=== PATIENT | female | born 1945 | race African-American/Black ===

== ENCOUNTER 2018-10-20 11:06 | Inpatient (IN) | payer MEDICARE, MEDICAID ==
[~2018-10-20] VITALS: Ht 157.5 cm; Wt 93.4 kg
[2018-10-20 10:00] VITALS: BP 218/76
[~2018-10-20 11:06] MED LIST: AMLO10TA80 PO; ATOR-2 PO; DOXY100C42 PO; LEVEMIR SQ; OLME40TA11 PO
[2018-10-20] MEDS ORDERED: DEXTROSE 50% WATER 50ML SYRINGE IV PRN (11:45)
[2018-10-20 12:00] VITALS: BP 181/72
[2018-10-20] MEDS: BLOOD SUGAR DIAGNOSTIC STRIP TEST SCH ×3 (12:20→20:20)
[2018-10-20 13:33] VITALS: BP 217/86
[2018-10-20] MEDS: AMLODIPINE 10MG TABLET PO SCH (14:13)
[2018-10-20] MEDS: INSULIN LISPRO 100 UNITS/ML SUBCUT SCH ×3 (14:22→20:26)
[2018-10-20] MEDS: ISOSORB DINIT/HYDRALAZINE HCL 20/37.5MG TABLET PO SCH ×2 (15:42→17:54)
[2018-10-20] MEDS: DEXT 5%/0.45% NACL KCL 20MEQ/L 1,000 ML IV SCH (15:43)
[2018-10-20 16:33] VITALS: BP 160/108
[2018-10-20] MEDS ORDERED: CLOP75TA4 PO (16:39)
[2018-10-20] MEDS ORDERED: METO1TAB26 MT (16:39)
[2018-10-20] MEDS ORDERED: LEVVL SQ (16:39)
[2018-10-20] MEDS ORDERED: NITR0.4T49 SL (16:39)
[2018-10-20] MEDS ORDERED: [UNRECOGNIZED DRUG - CODE] IV (16:39)
[2018-10-20] MEDS ORDERED: INSU100C6 SQ (16:39)
[2018-10-20] MEDS ORDERED: SPIR1TAB4 PO (16:39)
[2018-10-20] MEDS ORDERED: ATOR80TA MT (16:39)
[2018-10-20 20:00] VITALS: BP 149/75
[2018-10-20] MEDS: INSULIN GLARGINE UD 100 UNITS/ML SYR SUBCUT SCH (20:10)
[2018-10-21] VITALS: BP 140/70
[2018-10-21 04:00] VITALS: BP 173/76
[2018-10-21 06:44] LABS: HEMATOCRIT 32.3 % (36.0-48.0); HEMOGLOBIN 10.9 g/dL (12.0-16.0); MEAN CORPUSCULAR HEMOGLOBIN 30.4 pg (28.0-32.0); MEAN CORPUSCULAR VOLUME 90.4 fL (81.0-99.0); PLATELET 238 x1000/uL (130-400); RED BLOOD CELL COUNT 3.57 mill/uL (4.2-5.4); RED CELL DISTRIBUTION WIDTH 14.5 % (11.6-14.6)
[2018-10-21] MEDS: BLOOD SUGAR DIAGNOSTIC STRIP TEST SCH ×4 (07:26→20:13)
[2018-10-21 07:39] LABS: HEPATITIS B SURFACE ANTIGEN NEGATIVE
[2018-10-21] MEDS: INSULIN LISPRO 100 UNITS/ML SUBCUT SCH ×4 (07:50→20:19)
[2018-10-21 08:00] VITALS: BP_SYST 161; BP_SYST 182; BP_DIAS 64; BP_DIAS 71
[2018-10-21 08:09] LABS: HEPATITIS A AB IGM NEGATIVE (NEGATIVE)
[2018-10-21 09:13] LABS: CHLORIDE 109 mEq/L (98-107)
[2018-10-21 09:22] LABS: PHOSPHORUS 2.5 mg/dL (2.5-4.9)
[2018-10-21 09:23] LABS: LDL CHOLESTEROL 169 mg/dL (5-100); TOTAL IRON BINDING CAPACITY 224 ug/dL (250-450)
[2018-10-21 09:27] LABS: HDL CHOLESTEROL 40 mg/dL (40-59)
[2018-10-21 11:01] LABS: CLARITY URINE CLEAR (CLEAR); COLOR URINE YELLOW (YELLOW); KETONES URINE NEGATIVE (NEGATIVE); LEUKOCYTE ESTERASE URINE NEGATIVE (NEGATIVE); NITRITE URINE NEGATIVE (NEGATIVE); OCCULT BLOOD URINE NEGATIVE (NEGATIVE); PH URINE 5.5 (4.5-8.0); PROTEIN URINE TRACE (NEGATIVE); SPECIFIC GRAVITY URINE 1.011 (1.005-1.030); UROBILINOGEN URINE 0.2 E.U./dL (0.2-1.0)
[2018-10-21] MEDS: ATORVASTATIN CALCIUM 40MG TABLET PO SCH (11:16)
[2018-10-21] MEDS: AMLODIPINE 10MG TABLET PO SCH (11:16)
[2018-10-21] MEDS: CLOPIDOGREL 75MG TABLET PO SCH (11:17)
[2018-10-21] MEDS: METOPROLOL TARTRATE 50MG TABLET PO SCH ×2 (11:17→20:07)
[2018-10-21] MEDS: LOSARTAN POTASSIUM 100 MG TABLET PO SCH (11:17)
[2018-10-21] MEDS: SPIRONOLACTONE 25MG TABLET PO SCH (11:18)
[2018-10-21] MEDS: INSULIN GLARGINE UD 100 UNITS/ML SYR SUBCUT SCH ×2 (11:37→22:01)
[2018-10-21 12:00] VITALS: BP 153/79
[2018-10-21] MEDS: ISOSORB DINIT/HYDRALAZINE HCL 20/37.5MG TABLET PO SCH ×2 (12:12→18:01)
[2018-10-21 16:00] VITALS: BP 136/60
[2018-10-21] MEDS: ACETAMINOPHEN 325MG TABLET PO PRN (16:04)
[2018-10-21] MEDS ORDERED: NON FORMULARY PATIENT HOME MED XX SCH ×2 (17:30)
[2018-10-21] MEDS ORDERED: NITROGLYCERIN 0.4MG TABLET SL SL PRN (18:45)
[2018-10-22] MEDS: BLOOD SUGAR DIAGNOSTIC STRIP TEST SCH ×4 (07:20→21:29)
[2018-10-22] MEDS: INSULIN LISPRO 100 UNITS/ML SUBCUT SCH ×4 (07:50→21:48)
[2018-10-22 08:00] VITALS: BP 178/63
[2018-10-22] MEDS: DEXT 5%/0.45% NACL KCL 20MEQ/L 1,000 ML IV SCH (09:53)
[2018-10-22] MEDS: AMLODIPINE 10MG TABLET PO SCH (09:53)
[2018-10-22] MEDS: CLOPIDOGREL 75MG TABLET PO SCH (09:54)
[2018-10-22] MEDS: ATORVASTATIN CALCIUM 40MG TABLET PO SCH (09:54)
[2018-10-22] MEDS: LOSARTAN POTASSIUM 100 MG TABLET PO SCH (09:54)
[2018-10-22] MEDS: ISOSORB DINIT/HYDRALAZINE HCL 20/37.5MG TABLET PO SCH ×3 (09:54→18:38)
[2018-10-22] MEDS: SPIRONOLACTONE 25MG TABLET PO SCH (09:55)
[2018-10-22] MEDS: METOPROLOL TARTRATE 50MG TABLET PO SCH ×2 (09:55→21:18)
[2018-10-22] MEDS: INSULIN GLARGINE UD 100 UNITS/ML SYR SUBCUT SCH ×2 (10:03→21:49)
[2018-10-22] MEDS ORDERED: IOHEXOL-350 100 ML BOTTLE ONE (11:44)
[2018-10-22] MEDS: ACETAMINOPHEN 325MG TABLET PO PRN (12:34)
[2018-10-22 14:12] LABS: *AMPHETAMINES SCREEN URINE NEGATIVE (NEGATIVE); *BARBITURATES SCREEN URINE NEGATIVE (NEGATIVE); *BENZODIAZEPINES SCREEN URINE NEGATIVE (NEGATIVE); *COCAINE SCREEN URINE NEGATIVE (NEGATIVE); METHADONE URINE SCREEN NEGATIVE (NEGATIVE)
[2018-10-22 14:13] LABS: CANNABINOID URINE SCREEN NEGATIVE (NEGATIVE); OPIATES URINE SCREEN NEGATIVE (NEGATIVE); PHENCYCLIDINE URINE SCREEN NEGATIVE (NEGATIVE)
[2018-10-22 14:57] LABS: ETHANOL BLOOD < 10 mg/dL
[2018-10-22 15:00] LABS: LDL CHOLESTEROL 136 mg/dL (5-100)
[2018-10-22 15:01] LABS: HDL CHOLESTEROL 35 mg/dL (40-59)
[2018-10-22 15:02] LABS: T4 FREE 1.11 ng/dL (0.76-1.46)
[2018-10-22 15:15] LABS: VITAMIN B12 SERUM 1089 pg/mL (211-911)
[2018-10-22 15:19] LABS: FOLIC ACID (FOLATE) SERUM > 20.00 ng/mL (>5.38)
[2018-10-22 16:00] VITALS: BP 125/49
[2018-10-22 20:00] VITALS: BP 140/64
[2018-10-23] VITALS: BP 159/66
[2018-10-23] MEDS: DEXT 5%/0.45% NACL KCL 20MEQ/L 1,000 ML IV SCH (02:13)
[2018-10-23 04:00] VITALS: BP 167/63
[2018-10-23] MEDS: BLOOD SUGAR DIAGNOSTIC STRIP TEST SCH ×3 (06:34→18:02)
[2018-10-23] MEDS: INSULIN LISPRO 100 UNITS/ML SUBCUT SCH ×3 (06:35→18:02)
[2018-10-23 08:00] VITALS: BP 146/64
[2018-10-23 08:37] LABS: BASOPHILS % 0.7 % (0.0-2.0); EOSINOPHILS % 0.6 % (0.0-5.0); HEMATOCRIT. 33.1 % (36.0-48.0); LYMPHOCYTES % 19.9 % (20.0-50.0); MEAN CORPUSCULAR VOLUME 90.6 fL (81.0-99.0); MEAN PLATELET VOLUME 9.2 fl (7.4-10.4); MONOCYTES % 8.3 % (2.0-8.0); NEUTROPHILS % 70.5 % (40.0-76.0); PLATELET 248 x1000/uL (130-400); RED BLOOD CELL COUNT 3.65 mill/uL (4.2-5.4); RED CELL DISTRIBUTION WIDTH 14.6 % (11.6-14.6)
[2018-10-23 08:39] LABS: CHLORIDE 111 mEq/L (98-107)
[2018-10-23 08:47] LABS: PHOSPHORUS 3.7 mg/dL (2.5-4.9)
[2018-10-23] MEDS: ATORVASTATIN CALCIUM 40MG TABLET PO SCH (09:10)
[2018-10-23] MEDS: SPIRONOLACTONE 25MG TABLET PO SCH (09:10)
[2018-10-23] MEDS: LOSARTAN POTASSIUM 100 MG TABLET PO SCH (09:11)
[2018-10-23] MEDS: METOPROLOL TARTRATE 50MG TABLET PO SCH (09:11)
[2018-10-23] MEDS: CLOPIDOGREL 75MG TABLET PO SCH (09:11)
[2018-10-23] MEDS: ISOSORB DINIT/HYDRALAZINE HCL 20/37.5MG TABLET PO SCH ×3 (09:11→17:28)
[2018-10-23] MEDS: AMLODIPINE 10MG TABLET PO SCH (09:11)
[2018-10-23] MEDS: INSULIN GLARGINE UD 100 UNITS/ML SYR SUBCUT SCH (11:03)
[2018-10-23 12:00] VITALS: BP 144/67
[2018-10-23 16:00] VITALS: BP 134/59
[2018-10-23 17:41] VITALS: BP 134/59
== END 2018-10-23 18:23 | DRG 65 ==
LOC: 6EST 11:06
PROVIDERS: ADMIT Internal Medicine; ATTEND Internal Medicine
PROC: 05H533Z Insertion of Infusion Device into Right Subclavian Vein, Percutaneous Approach (ICD-10-PCS; principal; 2018-10-21)
PROC: B546ZZA Ultrasonography of Right Subclavian Vein, Guidance (ICD-10-PCS; 2018-10-21)
PROC: B5161ZA Fluoroscopy of Right Subclavian Vein using Low Osmolar Contrast, Guidance (ICD-10-PCS; 2018-10-21)
DX: I63.532 Cerebral infarction due to unspecified occlusion or stenosis of left posterior cerebral artery (principal); G81.91 Hemiplegia, unspecified affecting right dominant side; R41.4 Neurologic neglect syndrome; D50.9 Iron deficiency anemia, unspecified; E11.9 Type 2 diabetes mellitus without complications; E78.00 Pure hypercholesterolemia, unspecified; E78.5 Hyperlipidemia, unspecified; R47.02 Dysphasia; H54.7 Unspecified visual loss; R33.9 Retention of urine, unspecified; R47.01 Aphasia; H53.461 Homonymous bilateral field defects, right side; I11.9 Hypertensive heart disease without heart failure; I65.23 Occlusion and stenosis of bilateral carotid arteries; M19.90 Unspecified osteoarthritis, unspecified site; Z91.14 Patient's other noncompliance with medication regimen; Z88.6 Allergy status to analgesic agent; Z91.19 Patient's noncompliance with other medical treatment and regimen; Z88.0 Allergy status to penicillin; Z88.5 Allergy status to narcotic agent; Z88.2 Allergy status to sulfonamides; Z79.84 Long term (current) use of oral hypoglycemic drugs
CPT/HCPCS: 36415; 36573; 70496; 70498; 70544; 70553; 71045; 80061; 80069; 80076; 80305; 80320; 82248; 82607; 82746; 82962; 83036; 83540; 83550; 83735; 84100; 84436; 84439; 84443; 84480; 84481; 84550; 85027; 85651; 86705; 86709; 86803; 87340; 92610; 93005; 93306; 93880; 97110; 97112; 97162; 97167; 97530; C1725; J1815; J7040; Q9967; A4315; G0480

== ENCOUNTER 2018-11-03 18:40 | Inpatient (IN) | payer MEDICARE, MEDICAID ==
[~2018-11-03] VITALS: Ht 165.1 cm; Wt 96.2 kg
[~2018-11-03 18:40] MED LIST changes: +ATOR80TA MT; +CLOP75TA4 PO; +INSU100C6 SQ; +LEVVL SQ; +METO1TAB26 MT; +NITR0.4T49 SL; +SPIR1TAB4 PO; +[UNRECOGNIZED DRUG - CODE] IV
[2018-11-03 19:30] VITALS: BP 175/67
[2018-11-03 20:00] VITALS: BP 155/70
[2018-11-03 21:00] VITALS: BP 129/92
[2018-11-03] MEDS ORDERED: DEXTROSE 50% WATER 50ML SYRINGE IV PRN (21:45)
[2018-11-03 22:00] VITALS: BP 170/82
[2018-11-03] MEDS: DEXT 5%/0.45% NACL 1000ML 1,000 ML IV SCH (23:35)
[2018-11-03] MEDS: BLOOD SUGAR DIAGNOSTIC STRIP TEST SCH (23:43)
[2018-11-03] MEDS: DILTIAZEM HCL 5MG/ML 5ML VIAL IV PRN (23:44)
[2018-11-04] VITALS (12 sets, daily range): BP systolic 103–193; BP diastolic 41–140
[2018-11-04] MEDS: INSULIN LISPRO 100 UNITS/ML SUBCUT SCH ×4 (00:08→17:03)
[2018-11-04] MEDS: BLOOD SUGAR DIAGNOSTIC STRIP TEST SCH ×3 (06:55→17:02)
[2018-11-04] MEDS: DILTIAZEM HCL 5MG/ML 5ML VIAL IV PRN (18:40)
[2018-11-05] VITALS (12 sets, daily range): BP systolic 122–210; BP diastolic 57–91
[2018-11-05] MEDS: DILTIAZEM HCL 5MG/ML 5ML VIAL IV PRN (00:12)
[2018-11-05] MEDS: BLOOD SUGAR DIAGNOSTIC STRIP TEST SCH ×4 (00:35→17:20)
[2018-11-05] MEDS: DEXT 5%/0.45% NACL 1000ML 1,000 ML IV SCH (00:35)
[2018-11-05] MEDS: INSULIN LISPRO 100 UNITS/ML SUBCUT SCH ×4 (00:41→17:23)
[2018-11-05] MEDS ORDERED: FUROSEMIDE 20MG/2ML VIAL IVP NR (02:53)
[2018-11-05] MEDS: LORAZEPAM 2MG/ML CPJ IV PRN (07:09)
[2018-11-05 10:57] LABS: BASOPHILS % 0.8 % (0.0-2.0); EOSINOPHILS % 1.5 % (0.0-5.0); HEMOGLOBIN. 11.4 g/dL (12.0-16.0); LYMPHOCYTES % 19.6 % (20.0-50.0); MEAN CORPUSCULAR HEMOGLOBIN 30.4 pg (28.0-32.0); MEAN CORPUSCULAR VOLUME 90.7 fL (81.0-99.0); MEAN PLATELET VOLUME 8.3 fl (7.4-10.4); MONOCYTES % 7.9 % (2.0-8.0); NEUTROPHILS % 70.2 % (40.0-76.0); PLATELET 364 x1000/uL (130-400); RED BLOOD CELL COUNT 3.75 mill/uL (4.2-5.4); RED CELL DISTRIBUTION WIDTH 14.4 % (11.6-14.6)
[2018-11-05 11:36] LABS: CHLORIDE 108 mEq/L (98-107)
[2018-11-05 11:48] LABS: PHOSPHORUS 3.1 mg/dL (2.5-4.9)
[2018-11-05] MEDS: DILTIAZEM HCL 5MG/ML 5ML VIAL IV SCH ×2 (12:50→18:20)
[2018-11-05] MEDS ORDERED: KCL 20MEQ/100ML PREMIX 100 ML IV SCH (13:30)
[2018-11-05] MEDS: DEXT 5%/0.45% NACL KCL 20MEQ/L 1,000 ML IV SCH (16:14)
[2018-11-06] VITALS (12 sets, daily range): BP systolic 141–165; BP diastolic 65–83
[2018-11-06] MEDS: INSULIN LISPRO 100 UNITS/ML SUBCUT SCH ×4 (00:06→18:00)
[2018-11-06] MEDS: BLOOD SUGAR DIAGNOSTIC STRIP TEST SCH ×4 (00:07→18:12)
[2018-11-06] MEDS: DILTIAZEM HCL 5MG/ML 5ML VIAL IV SCH ×4 (00:07→20:56)
[2018-11-06] MEDS: LORAZEPAM 2MG/ML CPJ IV PRN (03:01)
[2018-11-06 07:07] LABS: EOSINOPHILS % 2.6 % (0.0-5.0); HEMATOCRIT. 34.1 % (36.0-48.0); HEMOGLOBIN. 11.4 g/dL (12.0-16.0); LYMPHOCYTES % 27.7 % (20.0-50.0); MEAN CORPUSCULAR HEMOGLOBIN 30.3 pg (28.0-32.0); MEAN CORPUSCULAR VOLUME 90.6 fL (81.0-99.0); MEAN PLATELET VOLUME 8.1 fl (7.4-10.4); MONOCYTES % 7.3 % (2.0-8.0); NEUTROPHILS % 61.4 % (40.0-76.0); PLATELET 351 x1000/uL (130-400); RED BLOOD CELL COUNT 3.76 mill/uL (4.2-5.4); RED CELL DISTRIBUTION WIDTH 14.3 % (11.6-14.6)
[2018-11-06 07:26] LABS: CHLORIDE 110 mEq/L (98-107)
[2018-11-06] MEDS: DEXT 5%/0.45% NACL KCL 20MEQ/L 1,000 ML IV SCH (09:30)
[2018-11-06] MEDS ORDERED: FUROSEMIDE 20MG/2ML VIAL IV NR (10:30)
[2018-11-06] MEDS: QUETIAPINE FUMARATE 25MG TABLET PO SCH (13:10)
[2018-11-06 20:02] LABS: INR 1.1; PROTHROMBIN TIME 11.4 sec (9.6-11.0)
[2018-11-07] VITALS (15 sets, daily range): BP systolic 134–159; BP diastolic 60–111
[2018-11-07] MEDS: BLOOD SUGAR DIAGNOSTIC STRIP TEST SCH ×5 (00:28→23:49)
[2018-11-07] MEDS: LORAZEPAM 2MG/ML CPJ IV PRN (02:45)
[2018-11-07] MEDS: DILTIAZEM HCL 5MG/ML 5ML VIAL IV SCH ×4 (02:49→19:29)
[2018-11-07] MEDS: DEXT 5%/0.45% NACL KCL 20MEQ/L 1,000 ML IV SCH ×2 (02:49→19:48)
[2018-11-07] MEDS: INSULIN LISPRO 100 UNITS/ML SUBCUT SCH ×5 (06:48→23:49)
[2018-11-07] MEDS: QUETIAPINE FUMARATE 25MG TABLET PO SCH (09:00)
[2018-11-07] MEDS ORDERED: BACTERIOSTATIC SODIUM CHLORIDE 0.9% 30ML VIAL IJ ONE (09:14)
[2018-11-07] MEDS ORDERED: LEVOFLOXACIN 250MG PREMIX 50 ML IV SCH (10:00)
[2018-11-07] MEDS ORDERED: MIDAZOLAM HCL 5 MG/5 ML VIAL ONE (11:53)
[2018-11-07] MEDS ORDERED: FENTANYL CITRATE/PF 50MCG/ML 2ML VIAL ONE (11:54)
[2018-11-07] MEDS ORDERED: LEVOFLOXACIN 500MG PREMIX 100 ML IV ONE (11:59)
[2018-11-07] MEDS: MVI, ADULT NO.1 10 ML in DEXT 5%/0.45% NACL KCL 20MEQ/L 1,000 ML IV SCH ×2 (12:00)
[2018-11-07] MEDS ORDERED: MIDAZOLAM HCL 5 MG/5 ML VIAL IV ONE (12:02)
[2018-11-08] VITALS (12 sets, daily range): BP systolic 124–176; BP diastolic 52–81
[2018-11-08] MEDS: DILTIAZEM HCL 5MG/ML 5ML VIAL IV SCH ×4 (01:41→21:07)
[2018-11-08] MEDS ORDERED: ONDANSETRON HCL 4MG/2ML INJ IV PRN (05:15)
[2018-11-08] MEDS ORDERED: FUROSEMIDE 20MG/2ML VIAL IVP NR (05:15)
[2018-11-08] MEDS: INSULIN LISPRO 100 UNITS/ML SUBCUT SCH ×3 (05:39→18:07)
[2018-11-08] MEDS: BLOOD SUGAR DIAGNOSTIC STRIP TEST SCH ×3 (05:40→17:16)
[2018-11-08 08:57] LABS: BASOPHILS % 0.3 % (0.0-2.0); HEMATOCRIT. 34.3 % (36.0-48.0); HEMOGLOBIN. 11.5 g/dL (12.0-16.0); LYMPHOCYTES % 7.7 % (20.0-50.0); MEAN CORPUSCULAR HEMOGLOBIN 30.2 pg (28.0-32.0); MEAN CORPUSCULAR VOLUME 90.6 fL (81.0-99.0); MONOCYTES % 5.9 % (2.0-8.0); NEUTROPHILS % 86.1 % (40.0-76.0); PLATELET 317 x1000/uL (130-400); RED BLOOD CELL COUNT 3.79 mill/uL (4.2-5.4); RED CELL DISTRIBUTION WIDTH 14.4 % (11.6-14.6)
[2018-11-08] MEDS: MVI, ADULT NO.1 10 ML in DEXT 5%/0.45% NACL KCL 20MEQ/L 1,000 ML IV SCH ×2 (09:00)
[2018-11-08] MEDS: QUETIAPINE FUMARATE 25MG TABLET PO SCH (09:23)
[2018-11-08] MEDS: DEXT 5%/0.45% NACL KCL 20MEQ/L 1,000 ML IV SCH (11:39)
[2018-11-08 11:45] LABS: CLARITY URINE CLEAR (CLEAR); COLOR URINE YELLOW (YELLOW); KETONES URINE NEGATIVE (NEGATIVE); LEUKOCYTE ESTERASE URINE NEGATIVE (NEGATIVE); NITRITE URINE NEGATIVE (NEGATIVE); OCCULT BLOOD URINE NEGATIVE (NEGATIVE); PROTEIN URINE NEGATIVE (NEGATIVE); SPECIFIC GRAVITY URINE 1.007 (1.005-1.030); UROBILINOGEN URINE 0.2 E.U./dL (0.2-1.0)
[2018-11-08] MEDS ORDERED: FUROSEMIDE 20MG TABLET PO SCH (17:00)
[2018-11-08] MEDS ORDERED: AMLODIPINE 5MG TABLET PO SCH (21:00)
[2018-11-09] VITALS (13 sets, daily range): BP systolic 98–161; BP diastolic 50–85
[2018-11-09] MEDS: INSULIN LISPRO 100 UNITS/ML SUBCUT SCH ×4 (00:34→17:19)
[2018-11-09] MEDS: DILTIAZEM HCL 5MG/ML 5ML VIAL IV SCH (02:42)
[2018-11-09] MEDS: DEXT 5%/0.45% NACL KCL 20MEQ/L 1,000 ML IV SCH (05:11)
[2018-11-09] MEDS: BLOOD SUGAR DIAGNOSTIC STRIP TEST SCH ×4 (06:00→17:19)
[2018-11-09] MEDS ORDERED: MVI, ADULT NO.1 10 ML, POTASSIUM CHLORIDE INJ 20 MEQ in DEXT 5%/0.45% NACL 1000ML 1,000 ML IV SCH ×3 (09:00)
[2018-11-09] MEDS: ISOSORB DINIT/HYDRALAZINE HCL 20/37.5MG TABLET GT SCH ×2 (09:01→17:18)
[2018-11-09] MEDS: MAGNESIUM OXIDE 400MG TABLET GT SCH (09:01)
[2018-11-09] MEDS: CARVEDILOL 12.5MG TABLET GT SCH ×2 (09:01→21:17)
[2018-11-09] MEDS: QUETIAPINE FUMARATE 25MG TABLET PO SCH (09:02)
[2018-11-09] MEDS: AMLODIPINE 5MG TABLET GT SCH ×2 (09:02→21:16)
[2018-11-09] MEDS: POTASSIUM CHLORIDE 20MEQ TABLET SR PO SCH ×2 (09:06→21:16)
[2018-11-09 12:45] LABS: BASOPHILS % 0.3 % (0.0-2.0); EOSINOPHILS % 0.3 % (0.0-5.0); HEMATOCRIT. 29.9 % (36.0-48.0); MEAN CORPUSCULAR HEMOGLOBIN 30.2 pg (28.0-32.0); MEAN CORPUSCULAR VOLUME 90.5 fL (81.0-99.0); MEAN PLATELET VOLUME 8.8 fl (7.4-10.4); MONOCYTES % 8.1 % (2.0-8.0); NEUTROPHILS % 82.3 % (40.0-76.0); PLATELET 258 x1000/uL (130-400); RED CELL DISTRIBUTION WIDTH 14.3 % (11.6-14.6)
[2018-11-09] MEDS: HYDROCHLOROTHIAZIDE 12.5MG CAPSULE GT SCH (15:17)
[2018-11-09] MEDS ORDERED: QUETIAPINE FUMARATE 25MG TABLET PO PRN (16:45)
[2018-11-09] MEDS: METOCLOPRAMIDE HCL 10MG/2ML VIAL IV SCH (17:18)
[2018-11-10] VITALS (8 sets, daily range): BP systolic 116–132; BP diastolic 54–80
[2018-11-10] MEDS: METOCLOPRAMIDE HCL 10MG/2ML VIAL IV SCH ×3 (00:07→12:30)
[2018-11-10] MEDS: BLOOD SUGAR DIAGNOSTIC STRIP TEST SCH ×3 (00:08→12:18)
[2018-11-10] MEDS: INSULIN LISPRO 100 UNITS/ML SUBCUT SCH ×3 (00:09→12:31)
[2018-11-10 05:35] LABS: PHOSPHORUS 2.3 mg/dL (2.5-4.9)
[2018-11-10] MEDS ORDERED: SODIUM CHLORIDE 0.9% INJ 3ML FLUSH IVF SCH (06:00)
[2018-11-10 06:16] LABS: BASOPHILS % 0.4 % (0.0-2.0); EOSINOPHILS % 1.1 % (0.0-5.0); HEMATOCRIT. 29.3 % (36.0-48.0); HEMOGLOBIN. 9.5 g/dL (12.0-16.0); MEAN CORPUSCULAR HEMOGLOBIN 29.5 pg (28.0-32.0); MEAN CORPUSCULAR VOLUME 90.8 fL (81.0-99.0); MEAN PLATELET VOLUME 8.9 fl (7.4-10.4); MONOCYTES % 7.2 % (2.0-8.0); NEUTROPHILS % 81.3 % (40.0-76.0); PLATELET 265 x1000/uL (130-400); RED BLOOD CELL COUNT 3.22 mill/uL (4.2-5.4); RED CELL DISTRIBUTION WIDTH 14.7 % (11.6-14.6)
[2018-11-10] MEDS: HYDROCHLOROTHIAZIDE 12.5MG CAPSULE GT SCH (08:51)
[2018-11-10] MEDS: MAGNESIUM OXIDE 400MG TABLET GT SCH (08:51)
[2018-11-10] MEDS: ISOSORB DINIT/HYDRALAZINE HCL 20/37.5MG TABLET GT SCH (08:52)
[2018-11-10] MEDS: AMLODIPINE 5MG TABLET GT SCH (08:52)
[2018-11-10] MEDS: POTASSIUM CHLORIDE 20MEQ TABLET SR PO SCH (08:52)
[2018-11-10] MEDS: CARVEDILOL 12.5MG TABLET GT SCH (08:52)
[2018-11-10] MEDS ORDERED: MULTIVITAMINS,THER W-MINERALS TABLET GT SCH (09:00)
[2018-11-10] MEDS ORDERED: INSULIN GLARGINE UD 100 UNITS/ML SYR SUBCUT SCH ×2 (10:00)
== END 2018-11-10 13:24 | DRG 872 ==
LOC: 3WST 18:40
PROVIDERS: ADMIT Internal Medicine; ATTEND Internal Medicine
PROC: 0DH63UZ Insertion of Feeding Device into Stomach, Percutaneous Approach (ICD-10-PCS; principal; 2018-11-07)
DX: A41.9 Sepsis, unspecified organism (principal); I69.351 Hemiplegia and hemiparesis following cerebral infarction affecting right dominant side; N39.0 Urinary tract infection, site not specified; R41.4 Neurologic neglect syndrome; E46 Unspecified protein-calorie malnutrition; G93.40 Encephalopathy, unspecified; R47.01 Aphasia; I65.23 Occlusion and stenosis of bilateral carotid arteries; I65.02 Occlusion and stenosis of left vertebral artery; H53.461 Homonymous bilateral field defects, right side; E78.5 Hyperlipidemia, unspecified; E11.65 Type 2 diabetes mellitus with hyperglycemia; D50.9 Iron deficiency anemia, unspecified; E55.9 Vitamin D deficiency, unspecified; E78.00 Pure hypercholesterolemia, unspecified; R47.1 Dysarthria and anarthria; F91.9 Conduct disorder, unspecified; H54.7 Unspecified visual loss; I11.9 Hypertensive heart disease without heart failure; B96.1 Klebsiella pneumoniae [K. pneumoniae] as the cause of diseases classified elsewhere; K29.70 Gastritis, unspecified, without bleeding; M15.9 Polyosteoarthritis, unspecified; R13.12 Dysphagia, oropharyngeal phase; Z82.49 Family history of ischemic heart disease and other diseases of the circulatory system; Z91.19 Patient's noncompliance with other medical treatment and regimen; Z88.0 Allergy status to penicillin; Z88.2 Allergy status to sulfonamides; Z88.6 Allergy status to analgesic agent; Z88.1 Allergy status to other antibiotic agents; Z91.14 Patient's other noncompliance with medication regimen; Z68.37 Body mass index [BMI] 37.0-37.9, adult; I69.391 Dysphagia following cerebral infarction
CPT/HCPCS: 36415; 71045; 74018; 80048; 80076; 81003; 82140; 82248; 82962; 83735; 84100; 84134; 84550; 85651; 92610; 93005; 93970; 97162; 97166; 99152; J1815; J1940; J1956; J2060; J2250; J2405; J2765; J3010; J3480; J3490; G0500

== ENCOUNTER 2019-01-06 23:58 | Inpatient (IN) | payer MEDICARE, MEDICAID ==
[~2019-01-06] VITALS: Ht 167.6 cm; Wt 77.1 kg
[2019-01-07] MEDS ORDERED: LORAZEPAM 2MG/ML CPJ IV ONE (06:30)
[2019-01-07 08:37] LABS: BASOPHILS % 0.6 % (0.0-2.0); EOSINOPHILS % 1.5 % (0.0-5.0); HEMATOCRIT. 33.8 % (36.0-48.0); HEMOGLOBIN. 11.1 g/dL (12.0-16.0); LYMPHOCYTES % 28.3 % (20.0-50.0); MEAN CORPUSCULAR HEMOGLOBIN 29.6 pg (28.0-32.0); MEAN CORPUSCULAR VOLUME 90.5 fL (81.0-99.0); MONOCYTES % 8.6 % (2.0-8.0); PLATELET 278 x1000/uL (130-400); RED BLOOD CELL COUNT 3.73 mill/uL (4.2-5.4); RED CELL DISTRIBUTION WIDTH 14.3 % (11.6-14.6)
[2019-01-07 08:42] LABS: CHLORIDE 103 mEq/L (98-107)
[2019-01-07 08:43] LABS: PROTHROMBIN TIME 10.8 sec (9.6-11.0)
[2019-01-07] MEDS ORDERED: SODIUM CHLORIDE 0.9% 1,000 ML IV ONE (10:00)
[2019-01-07 12:00] VITALS: BP 125/70
[2019-01-07 12:36] VITALS: BP 130/72
[2019-01-07] MEDS ORDERED: HYDROCODONE/ACETAMINOPHEN 5/325MG TABLET PO PRN (13:00)
[2019-01-07] MEDS ORDERED: DEXTROSE 50% WATER 50ML SYRINGE IV PRN (13:00)
[2019-01-07] MEDS ORDERED: ONDANSETRON 4MG ODT PO PRN (13:00)
[2019-01-07] MEDS ORDERED: ACETAMINOPHEN 650MG/20.3ML UDC PO PRN (13:00)
[2019-01-07] MEDS: CARVEDILOL 12.5MG TABLET PO SCH ×2 (15:09→21:21)
[2019-01-07] MEDS: PANTOPRAZOLE SODIUM 40 MG/VIAL IV SCH (15:10)
[2019-01-07] MEDS: AMLODIPINE 5MG TABLET PO SCH ×2 (15:10→21:20)
[2019-01-07] MEDS: ASCORBIC ACID 500 MG TABLET PO SCH ×2 (15:10→21:20)
[2019-01-07] MEDS: MULTIVITAMINS,THER W-MINERALS TABLET PO SCH (15:10)
[2019-01-07] MEDS: DEXT 5%/0.45% NACL 1000ML 1,000 ML IV SCH (15:10)
[2019-01-07 15:47] LABS: TOTAL IRON BINDING CAPACITY 269 ug/dL (250-450)
[2019-01-07 15:48] LABS: HDL CHOLESTEROL 31 mg/dL (40-59); LDL CHOLESTEROL 134 mg/dL (5-100)
[2019-01-07 16:00] VITALS: BP 118/63
[2019-01-07] MEDS: BLOOD SUGAR DIAGNOSTIC STRIP TEST SCH ×2 (17:53→21:19)
[2019-01-07] MEDS: INSULIN LISPRO 100 UNITS/ML SUBCUT SCH ×2 (17:55→21:24)
[2019-01-07 18:02] LABS: CLARITY URINE CLOUDY (CLEAR); COLOR URINE YELLOW (YELLOW); KETONES URINE NEGATIVE (NEGATIVE); LEUKOCYTE ESTERASE URINE 3+ (NEGATIVE); NITRITE URINE NEGATIVE (NEGATIVE); OCCULT BLOOD URINE NEGATIVE (NEGATIVE); PH URINE >=9.0 (4.5-8.0); PROTEIN URINE 2+ (NEGATIVE); SPECIFIC GRAVITY URINE 1.017 (1.005-1.030); UROBILINOGEN URINE 0.2 E.U./dL (0.2-1.0)
[2019-01-07 20:00] VITALS: BP 124/101
[2019-01-07] MEDS: MIRTAZAPINE 15MG TABLET PO SCH (21:21)
[2019-01-07] MEDS: ISOSORB DINIT/HYDRALAZINE HCL 20/37.5MG TABLET PO SCH (21:23)
[2019-01-07] MEDS ORDERED: INSULIN GLARGINE UD 100 UNITS/ML SYR SUBCUT SCH (22:00)
[2019-01-08] VITALS: BP 118/51
[2019-01-08] MEDS: DEXT 5%/0.45% NACL 1000ML 1,000 ML IV SCH ×2 (00:32→14:26)
[2019-01-08 02:40] LABS: CLARITY URINE TURBID (CLEAR); COLOR URINE YELLOW (YELLOW); KETONES URINE NEGATIVE (NEGATIVE); LEUKOCYTE ESTERASE URINE 3+ (NEGATIVE); NITRITE URINE NEGATIVE (NEGATIVE); OCCULT BLOOD URINE NEGATIVE (NEGATIVE); PH URINE >=9.0 (4.5-8.0); PROTEIN URINE 3+ (NEGATIVE); UROBILINOGEN URINE 0.2 E.U./dL (0.2-1.0)
[2019-01-08] MEDS: BLOOD SUGAR DIAGNOSTIC STRIP TEST SCH ×4 (06:22→21:00)
[2019-01-08] MEDS: INSULIN LISPRO 100 UNITS/ML SUBCUT SCH ×3 (06:55→17:51)
[2019-01-08 07:45] LABS: BASOPHILS % 0.9 % (0.0-2.0); EOSINOPHILS % 1.6 % (0.0-5.0); HEMATOCRIT. 32.5 % (36.0-48.0); HEMOGLOBIN. 10.6 g/dL (12.0-16.0); LYMPHOCYTES % 22.9 % (20.0-50.0); MEAN CORPUSCULAR HEMOGLOBIN 29.7 pg (28.0-32.0); MEAN CORPUSCULAR VOLUME 91.1 fL (81.0-99.0); MEAN PLATELET VOLUME 10.8 fl (7.4-10.4); MONOCYTES % 8.7 % (2.0-8.0); NEUTROPHILS % 65.9 % (40.0-76.0); PLATELET 248 x1000/uL (130-400); RED BLOOD CELL COUNT 3.57 mill/uL (4.2-5.4); RED CELL DISTRIBUTION WIDTH 14.5 % (11.6-14.6)
[2019-01-08 08:12] LABS: CHLORIDE 104 mEq/L (98-107)
[2019-01-08] MEDS: ASCORBIC ACID 500 MG TABLET PO SCH ×2 (09:32→20:22)
[2019-01-08] MEDS: ISOSORB DINIT/HYDRALAZINE HCL 20/37.5MG TABLET PO SCH ×2 (09:33→20:28)
[2019-01-08] MEDS: CARVEDILOL 12.5MG TABLET PO SCH ×2 (09:33→20:22)
[2019-01-08] MEDS: AMLODIPINE 5MG TABLET PO SCH ×2 (09:33→20:22)
[2019-01-08] MEDS: MULTIVITAMINS,THER W-MINERALS TABLET PO SCH (09:33)
[2019-01-08] MEDS: INSULIN GLARGINE UD 100 UNITS/ML SYR SUBCUT SCH ×2 (09:47→22:00)
[2019-01-08 12:00] VITALS: BP 128/62
[2019-01-08] MEDS: PANTOPRAZOLE SODIUM 40 MG/VIAL IV SCH (13:19)
[2019-01-08 16:00] VITALS: BP 143/59
[2019-01-08 20:00] VITALS: BP 141/60
[2019-01-08] MEDS: MIRTAZAPINE 15MG TABLET PO SCH (20:22)
[2019-01-09] VITALS: BP 129/54
[2019-01-09 04:00] VITALS: BP 138/60
[2019-01-09] MEDS: INSULIN LISPRO 100 UNITS/ML SUBCUT SCH ×5 (05:51→20:40)
[2019-01-09] MEDS: BLOOD SUGAR DIAGNOSTIC STRIP TEST SCH ×4 (06:39→20:38)
[2019-01-09] MEDS: DEXT 5%/0.45% NACL 1000ML 1,000 ML IV SCH ×2 (06:39→17:07)
[2019-01-09 08:00] VITALS: BP 135/56
[2019-01-09] MEDS: ASCORBIC ACID 500 MG TABLET PO SCH ×2 (09:15→20:24)
[2019-01-09] MEDS: MULTIVITAMINS,THER W-MINERALS TABLET PO SCH (09:15)
[2019-01-09] MEDS: ISOSORB DINIT/HYDRALAZINE HCL 20/37.5MG TABLET PO SCH ×2 (09:16→20:23)
[2019-01-09] MEDS: AMLODIPINE 5MG TABLET PO SCH ×2 (09:16→20:23)
[2019-01-09] MEDS: CARVEDILOL 12.5MG TABLET PO SCH ×2 (09:16→20:23)
[2019-01-09 12:00] VITALS: BP 106/56
[2019-01-09] MEDS: INSULIN GLARGINE UD 100 UNITS/ML SYR SUBCUT SCH ×2 (13:31→21:05)
[2019-01-09 15:59] LABS: BASOPHILS % 0.9 % (0.0-2.0); EOSINOPHILS % 2.4 % (0.0-5.0); HEMATOCRIT. 28.5 % (36.0-48.0); HEMOGLOBIN. 9.1 g/dL (12.0-16.0); LYMPHOCYTES % 27.4 % (20.0-50.0); MEAN CORPUSCULAR HEMOGLOBIN 29.1 pg (28.0-32.0); MEAN CORPUSCULAR VOLUME 90.8 fL (81.0-99.0); MEAN PLATELET VOLUME 10.1 fl (7.4-10.4); MONOCYTES % 8.5 % (2.0-8.0); NEUTROPHILS % 60.8 % (40.0-76.0); PLATELET 209 x1000/uL (130-400); RED BLOOD CELL COUNT 3.13 mill/uL (4.2-5.4); RED CELL DISTRIBUTION WIDTH 14.4 % (11.6-14.6)
[2019-01-09 16:00] VITALS: BP 103/52
[2019-01-09] MEDS ORDERED: POTASSIUM CHLORIDE 20MEQ/PACKET PO NR (17:30)
[2019-01-09 20:00] VITALS: BP 166/60
[2019-01-09] MEDS: MIRTAZAPINE 15MG TABLET PO SCH (20:23)
[2019-01-10] VITALS: BP 112/46
[2019-01-10] MEDS: DEXT 5%/0.45% NACL 1000ML 1,000 ML IV SCH ×2 (03:16→22:44)
[2019-01-10 04:00] VITALS: BP 159/68
[2019-01-10] MEDS: BLOOD SUGAR DIAGNOSTIC STRIP TEST SCH ×4 (07:20→21:45)
[2019-01-10 08:00] VITALS: BP 127/77
[2019-01-10 08:09] LABS: BASOPHILS % 0.7 % (0.0-2.0); EOSINOPHILS % 2.8 % (0.0-5.0); HEMATOCRIT. 30.2 % (36.0-48.0); HEMOGLOBIN. 9.9 g/dL (12.0-16.0); LYMPHOCYTES % 21.4 % (20.0-50.0); MEAN CORPUSCULAR HEMOGLOBIN 29.5 pg (28.0-32.0); MEAN CORPUSCULAR VOLUME 90.3 fL (81.0-99.0); MEAN PLATELET VOLUME 10.4 fl (7.4-10.4); MONOCYTES % 7.5 % (2.0-8.0); NEUTROPHILS % 67.6 % (40.0-76.0); PLATELET 234 x1000/uL (130-400); RED BLOOD CELL COUNT 3.34 mill/uL (4.2-5.4); RED CELL DISTRIBUTION WIDTH 14.2 % (11.6-14.6)
[2019-01-10 08:30] LABS: CHLORIDE 110 mEq/L (98-107)
[2019-01-10] MEDS: MULTIVITAMINS,THER W-MINERALS TABLET PO SCH (10:44)
[2019-01-10] MEDS: ISOSORB DINIT/HYDRALAZINE HCL 20/37.5MG TABLET PO SCH ×2 (10:45→21:21)
[2019-01-10] MEDS: ASCORBIC ACID 500 MG TABLET PO SCH ×2 (10:45→21:20)
[2019-01-10] MEDS: CARVEDILOL 12.5MG TABLET PO SCH ×2 (10:46→21:21)
[2019-01-10] MEDS: AMLODIPINE 5MG TABLET PO SCH ×2 (10:46→21:21)
[2019-01-10] MEDS: INSULIN LISPRO 100 UNITS/ML SUBCUT SCH ×4 (11:01→21:37)
[2019-01-10] MEDS: INSULIN GLARGINE UD 100 UNITS/ML SYR SUBCUT SCH ×2 (11:06→21:46)
[2019-01-10 12:00] VITALS: BP 114/50
[2019-01-10 12:15] LABS: PHOSPHORUS 2.9 mg/dL (2.5-4.9)
[2019-01-10 16:00] VITALS: BP 137/65
[2019-01-10 20:00] VITALS: BP 142/67
[2019-01-10] MEDS: MIRTAZAPINE 15MG TABLET PO SCH (21:20)
[2019-01-11] VITALS: BP 144/58
[2019-01-11 04:00] VITALS: BP 151/71
[2019-01-11] MEDS: BLOOD SUGAR DIAGNOSTIC STRIP TEST SCH ×4 (07:20→21:00)
[2019-01-11] MEDS: INSULIN LISPRO 100 UNITS/ML SUBCUT SCH ×4 (07:50→22:31)
[2019-01-11 08:00] VITALS: BP 157/56
[2019-01-11] MEDS: ISOSORB DINIT/HYDRALAZINE HCL 20/37.5MG TABLET PO SCH ×2 (09:07→22:08)
[2019-01-11] MEDS: ASCORBIC ACID 500 MG TABLET PO SCH ×2 (09:07→22:12)
[2019-01-11] MEDS: MULTIVITAMINS,THER W-MINERALS TABLET PO SCH (09:07)
[2019-01-11] MEDS: AMLODIPINE 5MG TABLET PO SCH ×2 (09:15→22:12)
[2019-01-11] MEDS: CARVEDILOL 12.5MG TABLET PO SCH ×2 (11:07→22:12)
[2019-01-11] MEDS: INSULIN GLARGINE UD 100 UNITS/ML SYR SUBCUT SCH ×2 (11:27→23:22)
[2019-01-11 12:00] VITALS: BP 135/51
[2019-01-11 16:00] VITALS: BP 135/57
[2019-01-11] MEDS: CEFAZOLIN 1000MG PREMIX 50 ML IV SCH (18:53)
[2019-01-11 20:00] VITALS: BP 160/76
[2019-01-11] MEDS: MIRTAZAPINE 15MG TABLET PO SCH (22:12)
[2019-01-11] MEDS: DEXT 5%/0.45% NACL 1000ML 1,000 ML IV SCH (23:25)
[2019-01-12] VITALS: BP 140/58
[2019-01-12] MEDS: CEFAZOLIN 1000MG PREMIX 50 ML IV SCH (01:01)
[2019-01-12 04:00] VITALS: BP 139/69
[2019-01-12 06:04] LABS: BASOPHILS % 0.6 % (0.0-2.0); EOSINOPHILS % 3.8 % (0.0-5.0); HEMATOCRIT. 29.9 % (36.0-48.0); HEMOGLOBIN. 9.8 g/dL (12.0-16.0); LYMPHOCYTES % 24.8 % (20.0-50.0); MEAN CORPUSCULAR HEMOGLOBIN 29.5 pg (28.0-32.0); MEAN CORPUSCULAR VOLUME 89.6 fL (81.0-99.0); MEAN PLATELET VOLUME 10.1 fl (7.4-10.4); MONOCYTES % 7.7 % (2.0-8.0); NEUTROPHILS % 63.1 % (40.0-76.0); PLATELET 200 x1000/uL (130-400); RED BLOOD CELL COUNT 3.33 mill/uL (4.2-5.4); RED CELL DISTRIBUTION WIDTH 14.1 % (11.6-14.6)
[2019-01-12 06:34] LABS: CHLORIDE 111 mEq/L (98-107)
[2019-01-12 06:47] LABS: PHOSPHORUS 3.6 mg/dL (2.5-4.9)
[2019-01-12] MEDS: BLOOD SUGAR DIAGNOSTIC STRIP TEST SCH ×2 (07:30→13:12)
[2019-01-12 08:00] VITALS: BP 131/74
[2019-01-12] MEDS: MULTIVITAMINS,THER W-MINERALS TABLET PO SCH (09:31)
[2019-01-12] MEDS: AMLODIPINE 5MG TABLET PO SCH (09:31)
[2019-01-12] MEDS: ASCORBIC ACID 500 MG TABLET PO SCH (09:31)
[2019-01-12] MEDS: ISOSORB DINIT/HYDRALAZINE HCL 20/37.5MG TABLET PO SCH (09:31)
[2019-01-12] MEDS: CARVEDILOL 12.5MG TABLET PO SCH (09:32)
[2019-01-12] MEDS: INSULIN GLARGINE UD 100 UNITS/ML SYR SUBCUT SCH (09:39)
[2019-01-12] MEDS: INSULIN LISPRO 100 UNITS/ML SUBCUT SCH ×2 (09:44→13:48)
[2019-01-12 12:00] VITALS: BP 139/70
[2019-01-12] MEDS ORDERED: CEPHALEXIN 250MG CAPSULE PO SCH (12:00)
[2019-01-12 13:49] VITALS: BP 144/57
== END 2019-01-12 15:07 | DRG 682 ==
LOC: ER 23:58 → 6EST 01-07 10:50 → EDBEDREQTM 01-07 10:55 → ENRESERV 01-07 11:27
PROVIDERS: ADMIT Internal Medicine; ATTEND Internal Medicine
DX: N17.9 Acute kidney failure, unspecified (principal); G92 Toxic encephalopathy; N39.0 Urinary tract infection, site not specified; E46 Unspecified protein-calorie malnutrition; I69.959 Hemiplegia and hemiparesis following unspecified cerebrovascular disease affecting unspecified side; E86.0 Dehydration; I12.9 Hypertensive chronic kidney disease with stage 1 through stage 4 chronic kidney disease, or unspecified chronic kidney disease; E78.5 Hyperlipidemia, unspecified; E11.22 Type 2 diabetes mellitus with diabetic chronic kidney disease; N18.3 Chronic kidney disease, stage 3 (moderate); E11.65 Type 2 diabetes mellitus with hyperglycemia; E78.00 Pure hypercholesterolemia, unspecified; Z88.2 Allergy status to sulfonamides; Z88.0 Allergy status to penicillin; Z88.8 Allergy status to other drugs, medicaments and biological substances; I69.922 Dysarthria following unspecified cerebrovascular disease; I69.920 Aphasia following unspecified cerebrovascular disease; I69.991 Dysphagia following unspecified cerebrovascular disease; Z88.1 Allergy status to other antibiotic agents; Z79.899 Other long term (current) drug therapy; Z68.27 Body mass index [BMI] 27.0-27.9, adult
CPT/HCPCS: 36415; 71045; 74018; 80048; 80061; 80069; 80076; 81003; 82310; 82530; 82962; 83036; 83540; 83550; 83735; 84100; 84133; 84134; 84156; 84300; 84436; 84443; 84481; 84550; 85651; 87077; 87186; 87491; 87591; 93005; 93970; 97162; 97167; 99285; C1893; C9113; J0690; J1815; J2060; J7030